=== PATIENT | male | born 1945 | race Hispanic/Latino ===

== ENCOUNTER 2018-06-21 08:02 | Day surgery (SDC) | payer MEDICARE, OTHER ==
[2018-06-21] MEDS ORDERED: Lidocaine 4% (Laryng-O-Jet) Kit MM ONE (08:51)
[2018-06-21] MEDS ORDERED: Propofol 10 mg/ml Inj (20 ML) ONE (09:13)
[2018-06-21] MEDS ORDERED: Lidocaine 2% PF (10 ml) Amp ONE (09:18)
[2018-06-21 09:21] LABS: HEMOGLOBIN 14.6 g/dL (12.0-18.0); MEAN CELL VOLUME 95.5 fL (80.0-94.0); MEAN CORPUSCULAR HEMOGLOBIN 32.4 pg (27.0-31.0); MEAN CORPUSCULAR HGB CONC 33.9 g/dL (33.0-37.0); MEAN PLATELET VOLUME 8.5 fL (7.2-11.7); RBC 4.51 Mil/uL (4.40-5.90); RED CELL DISTRIBUTION WIDTH 13.8 % (11.5-14.5); WHITE BLOOD COUNT 7.8 K/uL (4.8-10.8)
[2018-06-21 09:29] LABS: PROTHROMBIN TIME 11.4 SECONDS (9.7-12.2)
[2018-06-21 09:38] LABS: BLOOD UREA NITROGEN 13 mg/dL (9-20); CALCIUM 9.2 mg/dl (8.6-10.4); GFR NON-AFRICAN AMERICAN > 60
--- NOTE | 2018-06-21 13:36 | CARD ---
APPROVED REPORT Date of service: 06/21/2018 EXAM: Transesophageal echocardiogram with color flow Doppler. INDICATION CVA/TIA Mitral Valve E/A ratio0.0 TDI E/Lateral E'0.0E/Medial E'0.0 LEFT VENTRICLE The left ventricle is normal size. There is normal left ventricular wall thickness. The left ventricular function is moderately reduced, with diffuse hypokinesis. The left ventricular ejection fraction is visualy about 40%. No regional wall motion abnormalities noted. Transmitral Doppler flow pattern is Grade II-pseudonormal filling dynamics. No left ventricle thrombus noted on this study. There is no ventricular septal defect visualized. There is no left ventricular aneurysm. There is no mass noted in the left ventricle. RIGHT VENTRICLE The right ventricle is normal size. There is normal right ventricular wall thickness. The right ventricular systolic function is mildly reduced. ATRIA The left atrium size is dilated The right atrium size is dilated The interatrial septum is intact with no evidence for an atrial septal defect. Injection of agitated saline failed to demonstrate an intra-cardiac shunt. AORTIC VALVE The aortic valve is normal in structure and function. No aortic regurgitation is present. There is no aortic valvular stenosis. There is no aortic valvular vegetation. MITRAL VALVE The mitral valve is normal in structure and function. There is no evidence of mitral valve prolapse. There is no mitral valve stenosis. There is mild mitral valve regurgitation noted. TRICUSPID VALVE The tricuspid valve is normal in structure and function. There is no tricuspid valve regurgitation noted. There is no tricuspid valve prolapse or vegetation. There is no tricuspid valve stenosis. PULMONIC VALVE The pulmonary valve is normal in structure and function. There is no pulmonic valvular regurgitation. There is no pulmonic valvular stenosis. GREAT VESSELS The aortic root is normal in size. The ascending aorta is normal in size. There are several areas of mixed soft and calcified irregular plaque, maximal .6 cm in height. The pulmonary artery is normal. PERICARDIAL EFFUSION The pericardium appears normal. There is no pleural effusion. <Conclusion> Transmitral Doppler flow pattern is Grade II- The left ventricular function is moderately reduced, with diffuse hypokinesis. The left ventricular ejection fraction is visualy about 40%. The right ventricular systolic function is mildly reduced. The left atrium size is dilated The right atrium size is dilated The interatrial septum is intact with no evidence for an atrial septal defect. Injection of agitated saline failed to demonstrate an intra-cardiac shunt. There is mild mitral valve regurgitation noted. There are several areas of mixed soft and calcified irregular plaque, maximal .6 cm in height.
[2018-06-22 17:04] VITALS: RESP 18; O2SAT 100
== END 2018-06-21 11:00 | disposition home or self-care (01) ==
LOC: C.CATHLAB 08:02
PROVIDERS: ATTEND Internal Medicine Cardiovascular Disease
DX: G45.9 Transient cerebral ischemic attack, unspecified (principal); I34.0 Nonrheumatic mitral (valve) insufficiency; I07.1 Rheumatic tricuspid insufficiency
CPT/HCPCS: 36415; 80048; 82948; 85027; 85610; 85730; 93312; J2704; J3010